=== PATIENT | male | born 1975 | race Caucasian/White ===

== ENCOUNTER 2019-02-05 19:45 | Emergency (ER) | payer BC ==
[2019-02-05] MEDS ORDERED: Fluorescein Opthalmic Strip ONE (19:58)
[2019-02-05] MEDS ORDERED: Proparacaine 0.5% Opth 15 ML BOT ONE ×3 (19:59→20:01)
== END 2019-02-05 20:23 | disposition home or self-care (01) ==
LOC: ERS 19:45
DX: S05.02XA Injury of conjunctiva and corneal abrasion without foreign body, left eye, initial encounter (principal); W22.8XXA Striking against or struck by other objects, initial encounter
CPT/HCPCS: 99283